=== PATIENT | female | born 1990 | race Caucasian/White ===

== ENCOUNTER 2017-04-27 23:24 | Emergency (ER) | payer BC ==
[2017-04-27] MEDS ORDERED: NORMAL SALINE 1,000 ML IV ONE (23:49)
[2017-04-27] MEDS ORDERED: NALBUPHINE HCL 20 MG/ML AMPUL IV ONE (23:50)
[2017-04-27] MEDS ORDERED: PROMETHAZINE HCL 25 MG in DEXTROSE 5 % IN WATER 50 ML IV ONE ×2 (23:51)
[2017-04-28 00:11] LABS: Hemoglobin 10.9 gm/dL (12.5-16.0); Mean Cell Volume 86.6 fl (78-100); Mean Corpuscular Hemoglobin 28.6 pg (27-31); Neutrophil # 7.8 K/mm3 (1.3-6.0); Neutrophil % 67.9 % (42-75.0); Platelet Count 381 K/mm3 (150-450); Red Blood Count 3.81 M/mm3 (4.2-5.4); Red Cell Distribution Width 11.9 % (11.5-14.0); White Blood Count 11.5 K/mm3 (4.0-10.5)
[2017-04-28] MEDS ORDERED: NALBUPHINE HCL 20 MG/ML AMPUL ONE (00:11)
[2017-04-28 00:22] LABS: Albumin * 2.8 gm/dl (3.4-5.0); BUN/Creatinine Ratio 15.6 (9.0-21.6); Bilirubin, Total 0.2 mg/dL (0.0-1.1); Calcium * 8.4 mg/dL (7.9-10.9); Carbon Dioxide 27.9 mmol/L (24-32.6); Potassium 3.9 mmol/L (3.4-4.6); Total Protein 6.9 gm/dL (6.2-8.2)
[2017-04-28 00:28] LABS: Urine Bilirubin Negative (NEGATIVE); Urine Blood Negative /ul (NEGATIVE); Urine Ketone Negative (NEGATIVE); Urine Nitrite Negative (NEGATIVE); Urine Protein Negative (NEGATIVE); Urine Urobilinogen Normal (NORMAL)
[2017-04-28 00:34] LABS: Urine Appearance Clear; Urine Bacteria TRACE; Urine Color Yellow; Urine RBC None Seen /hpf (0-5); Urine WBC 0-5 /hpf (0-5)
--- NOTE | 2017-04-28 00:56 | ERNOTE ---
Abdominal HPI - Narrative Date of Service: 04/28/17 - General Chief Complaint: Abdominal Pain Time Seen by Provider: 04/27/17 23:40 Source: patient, family Exam Limitations: no limitations - Immun/Allergies/Home Medications Immunizatons: IMMUNIZATION HX Immunizations Up to Date Yes History of Influenza Vaccine No Hx Pneumococcal Vaccination No Allergies/Adverse Reactions: Allergies No Known Allergies Allergy (Unverified 04/27/17 23:28) Home Medications: HOME MEDICATIONS [id number]/Omega3/Dha/Fish Oil [ Gummies] 1 each PO DAILY 04/27/17 [Last Taken Unknown] - History of Present Illness Timing: constant Quality: moderate Activities at Onset: none Modifying Factors - (Improves): Present: vomiting Associated Symptoms: Present: nausea, vomiting, loss of appetite Prior Abdominal Problems: Present: other - currently pregnat with ga of 30 weeks first Review of Systems - Review of Systems Constitutional: Present: See HPI EYE: Present: no symptoms reported ENT: Present: no symptoms reported Respiratory: Present: no symptoms reported Cardiology: Present: no symptoms reported Gastrointestinal/Abdominal: Present: See HPI, nausea, vomiting, other - upper right quadrant pain with readiation to back Genitourinary: Present: See HPI Musculoskeletal: Present: no symptoms reported Skin: Present: no symptoms reported Neurological: Present: no symptoms reported Endocrine: Present: no symptoms reported Hematologic/Lymphatic: Present: no symptoms reported Psych: Present: no symptoms reported All Other Systems: All systems neg except as marked - Patient's Past Medical History Patient History - Medical: Anxiety, Depression Patient History - Cardiac/Respiratory: No pertinent hx Patient History - Cancer: No Hx of Cancer Patient History - Surgical Procedures: No surgical history Patient History - Other: None LMP (females 10-50): - Family History Family History:: no untoward family reactions to anesthesia, no family history of clotting disorders - Social History Living Situations: home Abuse History: No History of abuse Psych History: No pertinent hx Does anyone smoke in the home?: No Smoking Status: Never smoker Have you smoked in the past 12 months: No Do you dip or chew tobacco: No Patient requests Smoking Cessation Consult: No Initiate information on Smoking Cessation: No Alcohol Use: none Drug Use: none - Immunizations Immunizations Up to Date: Yes Hx Pneumococcal Vaccination: No History of Influenza Vaccine: No Physical Exam - Physical Exam General Appearance: Present: moderate distress Head Exam: Present: normal inspection, no evidence of injury Eye Exam: Normal inspection: bilateral, PERRL: bilateral, EOMI: bilateral Ears, Nose, Throat: Present: normal ENT inspection, tonsillar swelling Neck: Present: normal inspection, nontender Respiratory: Present: no respiratory distress, normal breath sounds, no accessory muscle use, chest nontender, lungs clear Cardiovascular/Chest: Present: regular rate, rhythm, no murmur, normal peripheral pulses Peripheral Pulses: N=norm/S=strong/W=weak/B=bound/A=absent: Carotid (R): Normal , Carotid (L): Normal, Radial (R): Normal, Radial (L): Normal, Femoral (R): Normal, Femoral (L): Normal, Dorsalis-pedis (R): Normal, Dorsalis-pedis (L): Normal Gastrointestinal/Abdominal: Present: other - gravid uterus above umbilicus, epigastric and upper right quadrant tenderness with radiation to right scapula Back Exam: Present: normal inspection, normal range of motion, no CVA tenderness , no vertebral tenderness Extremity Exam: Present: normal inspection, non-tender, normal range of motion, no edema Neurological Exam: Present: alert, oriented, normal mood/affect, no motor/ sensory deficits DTR: N=norm/NB=norm/brisk/A=abs/DD=dull/dimin/HC=hyperactive: Bicep (R): Normal , Bicep (L): Normal, Tricep (R): Normal, Tricep (L): Normal, Knee (R): Normal, Knee (L): Normal, Ankle (R): Normal, Ankle (L): Normal Skin Exam: Present: normal color, warm/dry ED Progress - Results and Orders Patient's Lab Results:: I have reviewed the patient's lab results. - Vital Signs Patient's Vital Signs:: I have reviewed the patient's vital signs. Vital Signs: Vital Signs 04/27/17 23:28 Temperature 36.6 C Pulse Rate 76 Respiratory 18 Rate Blood Pressure 117/70 O2 Sat by Pulse 99 Oximetry - Progress/Reassessment Chief Complaint: Abdominal Pain Progress:: Improved - Transfer of Care Expected Disposition: Discharge Plan - Plan Plan: to schedule us of gallbladder in am Departure Clinical Impression: Gallstones - Departure Disposition: Home self-care Condition: Fair Instructions: Cholelithiasis, Cholelithiasis, [id number] Referrals: Bina Almazan DO [Primary Care Provider] -
[2017-04-28 06:08] VITALS: BP 94/51
== END 2017-04-28 01:00 | disposition home or self-care (01) ==
LOC: ER 23:24
DX: K80.80 Other cholelithiasis without obstruction (principal); Z33.1 Pregnant state, incidental

== ENCOUNTER 2017-06-18 | Inpatient (IN) | payer BC ==
[2017-06-18] MEDS ORDERED: LIDOCAINE HCL 50 ML VIAL PERI PRN (00:10)
[2017-06-18] MEDS ORDERED: ONDANSETRON HCL/PF 2 MG/ML VIAL IV PRN ×2 (00:10→18:09)
[2017-06-18] MEDS ORDERED: OXYTOCIN/DEXTROSE 5%-WATER 30 UNITS/500 ML BAG IV ONE (00:10)
[2017-06-18 00:20] LABS: Hemoglobin 9.3 gm/dL (12.5-16.0); Mean Cell Volume 80.9 fl (78-100); Mean Corpuscular Hemoglobin 26.9 pg (27-31); Mean Corpuscular Hgb Conc 33.2 g/dl (32-36); Neutrophil # 7.8 K/mm3 (1.3-6.0); Neutrophil % 70.2 % (42-75.0); Platelet Count 327 K/mm3 (150-450); Red Blood Count 3.46 M/mm3 (4.2-5.4); Red Cell Distribution Width 13.2 % (11.5-14.0); White Blood Count 11.1 K/mm3 (4.0-10.5)
[2017-06-18] MEDS: MISOPROSTOL 100 MCG TABLET VG PRN ×2 (00:27→04:30)
[2017-06-18 00:34] LABS: Albumin * 2.5 gm/dl (3.4-5.0); Anion Gap 14.4 mmol/L (6.8-13.8); BUN/Creatinine Ratio 14.9 (9.0-21.6); Bilirubin, Total 0.2 mg/dL (0.0-1.1); Calcium * 8.1 mg/dL (7.9-10.9); Potassium 3.4 mmol/L (3.4-4.6); Total Protein 6.6 gm/dL (6.2-8.2)
[2017-06-18] MEDS: URSODIOL 300 MG CAPSULE PO SCH ×2 (08:28→14:25)
--- NOTE | 2017-06-18 09:33 | PN ---
Progess Note - Interim Narrative: 06/18/17 09:27 Patient rating contractions as moderate. Complains of right flank pain. Vital signs stable. Status post 2 doses of Cytotec (last dose given at 4:30 this morning) FHT: 140 baseline, reassuring Contractions q 1-2 min Cervix: 3/70/-2 Point tenderness over right rib #10-11 Impression: Intrauterine at 37 weeks. Induction of labor for intrahepatic cholestasis of . Somatic dysfunction of right rib #10/11 - probably aggravated by position and elevated liver enzymes. Plan: Continue present plan. OMT to ribs. Warm compresses and hot shower.
[2017-06-18] MEDS ORDERED: RINGER'S SOLUTION,LACTATED 1,000 ML IV ONE (12:00)
[2017-06-18] MEDS ORDERED: ACETAMINOPHEN 325 MG TABLET PO ONE (14:26)
--- NOTE | 2017-06-18 15:32 | PN ---
Progess Note - Interim Narrative: 06/18/17 15:31 Patient feeling her contractions and low back pain. Pain in right flank resolved. Vital signs stable. FHT: 140 baseline, reassuring Contractions q 1-3 min Cervix: 4/75/-2, AROM-clear Impression: Intrauterine at 37 weeks induction of labor for IHCP. Plan: Continue present plan
[2017-06-18] MEDS ORDERED: NALOXONE HCL 1 MG/1 ML SYRG IV PRN (18:09)
[2017-06-18] MEDS ORDERED: BUPIVACAINE HCL/0.9 % NACL/PF 250 ML EP PRN (18:09)
[2017-06-18] MEDS ORDERED: BUPIVACAINE HCL/PF 30 ML VIAL EP SCH (18:15)
--- NOTE | 2017-06-18 19:06 | OR ---
Anesthesia Procedure Note - Anesthesia Procedure Note Date of Service: 06/18/17 Narrative: Vital Signs - Last Taken Temp 36.5 C 06/18/17 18:44 Pulse 75 06/18/17 18:44 Resp 18 06/18/17 18:44 BP 112/68 06/18/17 18:44 Pulse Ox 98 06/18/17 18:44 06/18/17 19:05 ANESTHESIA PROCEDURE NOTE Date of Procedure: 06/18/2017. Time of procedure: 184. Performed by: Juan Pablo Pittman CRNA Program Lead: None. Preprocedure diagnosis: Active labor. Post procedure diagnosis: Same. Procedure: Insertion of labor epidural. Indications: The patient is a 26 -year-old female in active labor requesting labor epidural for pain management. Findings: See below. Details of the procedure: The patient was placed in a sitting position. DuraPrep as well as Betadine swabs X3 was applied to the patient's back. Patient was then draped in a sterile fashion. Lidocaine 1% was infiltrated to the skin and subcutaneous tissues at the level of the L3-4 interspace. The epidural space was identified using a 18-gauge Tuohy needle with loss-of- resistance technique. Epidural catheter was inserted to a depth of 10 centimeters at skin. Negative test dose was elicited using 3 mL of 1.5% preservative-free lidocaine plus epinephrine 1 200,000. The epidural catheter was then taped and secured in place. A loading dose of 8 mL of 0.25% preservative-free bupivacaine was administered to the epidural catheter after negative aspiration for blood and CSF. EBL: Minimal. Fluids: N/A. Specimen: N/A. Post procedure condition: The patient tolerated the procedure well. No complications were noted. Thank you for this consultation. Juan Pablo Pittman CRNA
[2017-06-18] MEDS: DEXTROSE 5%-LACTATED RINGERS 1,000 ML IV PRN ×2 (19:17→23:21)
[2017-06-19] MEDS: DEXTROSE 5%-LACTATED RINGERS 1,000 ML IV PRN (03:24)
[2017-06-19] MEDS ORDERED: LIDOCAINE HCL 50 ML VIAL ONE (05:10)
--- NOTE | 2017-06-19 05:51 | OR ---
Operative Report - Dictated Report Narrative: Indication: Maternal exhaustion Pre Procedure Patient was counseled to the risk, benefits, and alternatives to operative vaginal delivery. All questions were answered. Patient consented to proceed with operative vaginal delivery. heart rate interpretation: 180 bpm, good xzzt-[id number] variability with minor variable decelerations, accelerations reassuring, EFW 3200 g, station less 3, Position of head YOHAN, Anesthesia: epidural Cervix was completely dilated and effaced, maternal- size appropriate for application, bladder was emptied, flexion point identified, cup choice appropriate for application site, maternal tissue excluded from vacuum cup Procedure Total application time of the Kiwi Pro with Palm Pump was less than 1 minute, maximum vacuum achieved was 500 mm Hg, number of pulls 1, number of involuntary releases 0, vacuum reduced between contractions, advancement in station with each pull, degree of rotation 0-45 Post Procedure Viable male board at 0520 at 06/19/2017 with Apgars 8 and 9, weighing 3045 g in YOHAN position. Cord gases not collected, Placenta spontaneously delivered, EBL 100 mL, loop of cord compressed against the chest, caput, mild shoulder dystocia resolved with Job and suprapubic pressure. Right shoulder anterior. Fetus moving all extremities without difficulty. Mother informed of mild shoulder dystocia and recommended not delivering a baby over 7 pounds.
[2017-06-19] MEDS ORDERED: BISACODYL 10 MG SUPP.RECT RC PRN (05:52)
[2017-06-19] MEDS ORDERED: HYDROCORTISONE 30 APPL TUBE TP PRN (05:52)
[2017-06-19] MEDS ORDERED: SENNOSIDES 8.6 MG TABLET PO PRN (05:52)
[2017-06-19] MEDS ORDERED: oxyCODONE HCL/ACETAMINOPHEN 1 TAB TABLET PO PRN ×2 (05:52)
[2017-06-19] MEDS ORDERED: BENZOCAINE/MENTHOL 81 SPRAY CAN TP PRN (05:52)
[2017-06-19] MEDS ORDERED: OXYTOCIN/DEXTROSE 5%-WATER 30 UNITS/500 ML BAG IV ONE (05:52)
[2017-06-19] MEDS ORDERED: GLYCERIN/WITCH HAZEL LEAF 40 APPL BOX TP PRN (05:52)
[2017-06-19] MEDS ORDERED: FLU VACC QS2017-18(6MOS UP)/PF 60 MCG/0.5 ML SYRINGE IM ONE (07:02)
[2017-06-19] MEDS: IBUPROFEN 800 MG TABLET PO PRN ×2 (08:57→17:27)
[2017-06-19] MEDS: FERROUS SULFATE 325 MG TABLET PO SCH (10:24)
[2017-06-19] MEDS: DOCUSATE SODIUM 100 MG CAPSULE PO SCH ×2 (10:24→21:25)
[2017-06-19] MEDS: PRENATAL VITS96/IRON FUM/FOLIC 1 TAB TABLET PO SCH (10:24)
[2017-06-20] MEDS: IBUPROFEN 800 MG TABLET PO PRN ×2 (02:45→18:49)
[2017-06-20] MEDS ORDERED: FLU VACC QS2017-18(6MOS UP)/PF 60 MCG/0.5 ML SYRINGE IM ONE (09:00)
--- NOTE | 2017-06-20 09:05 | PN ---
Subjective - Date and Time Seen Date: 06/20/17 Time: 09:03 Objective - Vitals Vitals: Last Vital Signs Temp 36.6 C 06/20/17 07:30 Pulse 55 L 06/20/17 07:30 Resp 18 06/20/17 07:30 BP 132/69 06/20/17 07:30 Pulse Ox 98 06/20/17 07:30 Patient still complaining of pruritus. As pain under good control Lochia wnl Abdomen - soft, nontender Uterus - firm, at umbilicus - 1 No calf tenderness Impression: day #1 - s/p spontaneous vaginal delivery. Intrahepatic cholestasis of with elevated liver enzymes Plan: Continue routine care. Restart ursodiol and recheck liver function Cauti Physician Documentation - Urinary Catheter Management Urethral (Pierce) Date of Insertion: 06/18/17 Time of Insertion: 19:45
[2017-06-20] MEDS: PRENATAL VITS96/IRON FUM/FOLIC 1 TAB TABLET PO SCH (09:36)
[2017-06-20] MEDS: FERROUS SULFATE 325 MG TABLET PO SCH (09:36)
[2017-06-20] MEDS: DOCUSATE SODIUM 100 MG CAPSULE PO SCH ×2 (09:36→20:51)
[2017-06-20 11:16] LABS: Albumin * 2.1 gm/dl (3.4-5.0); Anion Gap 11.3 mmol/L (6.8-13.8); BUN/Creatinine Ratio 17.6 (9.0-21.6); Bilirubin, Total 0.2 mg/dL (0.0-1.1); Ca. Corrected For Albumin 10.3 mg/dL (8.4-10.2); Calcium * 9.1 mg/dL (7.9-10.9); Carbon Dioxide 28.2 mmol/L (24-32.6); Potassium 3.5 mmol/L (3.4-4.6); Total Protein 6.2 gm/dL (6.2-8.2)
[2017-06-20] MEDS: URSODIOL 300 MG PO SCH ×2 (14:11→17:24)
[2017-06-21] MEDS: IBUPROFEN 800 MG TABLET PO PRN (04:45)
[2017-06-21 08:21] VITALS: BP 125/60
--- NOTE | 2017-06-21 09:48 | PN ---
Progess Note - Interim Narrative: 06/21/17 09:46 progress note Subjective: The patient is doing well. She is ambulating, voiding, tolerating by mouth. She has minimal pain and moderate lochia. Pruritus has improved Objective: General: No acute distress Abdomen: Soft, nontender, fundus is firm just below the umbilicus Extremities: minimal edema, nontender to palpation Assessment and plan: day 2 Feeding: Breast Pain: Controlled with by mouth medication Cholestasis of : Improving Routine care.
[2017-06-21] MEDS: PRENATAL VITS96/IRON FUM/FOLIC 1 TAB TABLET PO SCH (09:53)
[2017-06-21] MEDS: DOCUSATE SODIUM 100 MG CAPSULE PO SCH (09:53)
[2017-06-21] MEDS: FERROUS SULFATE 325 MG TABLET PO SCH (09:53)
== END 2017-06-21 13:00 | disposition home or self-care (01) | DRG 774 ==
LOC: OB
PROVIDERS: ADMIT Obstetrics & Gynecology; ATTEND Obstetrics & Gynecology
PROC: 10D07Z6 Extraction of Products of Conception, Vacuum, Via Natural or Artificial Opening (ICD-10-PCS; principal; 2017-06-19)
PROC: 10907ZC Drainage of Amniotic Fluid, Therapeutic from Products of Conception, Via Natural or Artificial Opening (ICD-10-PCS; 2017-06-19)
PROC: 4A1HXCZ Monitoring of Products of Conception, Cardiac Rate, External Approach (ICD-10-PCS; 2017-06-19)
PROC: 0HQ9XZZ Repair Perineum Skin, External Approach (ICD-10-PCS; 2017-06-19)
PROC: 00HU33Z Insertion of Infusion Device into Spinal Canal, Percutaneous Approach (ICD-10-PCS; 2017-06-19)
DX: O75.81 Maternal exhaustion complicating labor and delivery (principal); O98.52 Other viral diseases complicating childbirth; K83.1 Obstruction of bile duct; O26.62 Liver and biliary tract disorders in childbirth; O66.0 Obstructed labor due to shoulder dystocia; O69.1XX0 Labor and delivery complicated by cord around neck, with compression, not applicable or unspecified; B00.1 Herpesviral vesicular dermatitis; J45.20 Mild intermittent asthma, uncomplicated; F41.9 Anxiety disorder, unspecified; Z3A.37 37 weeks gestation of pregnancy; Z37.0 Single live birth
CPT/HCPCS: 36415; 59025; 80053; 85025; 90686; G0008

== ENCOUNTER 2020-04-11 00:09 | Inpatient (IN) ==
[2020-04-11] MEDS ORDERED: RINGER'S SOLUTION,LACTATED 1,000 ML IV ONE (00:10)
[2020-04-11] MEDS ORDERED: OXYTOCIN/0.9 % SODIUM CHLORIDE 30 UNITS/500 ML BAG IV ONE (00:10)
[2020-04-11] MEDS ORDERED: ONDANSETRON 4 MG TAB.RAPDIS PO PRN (00:10)
[2020-04-11 00:28] LABS: Hematocrit 30.6 % (37.0-47.0); Hemoglobin 9.2 gm/dL (12.5-16.0); Mean Cell Volume 77.1 fl (78-100); Mean Corpuscular Hemoglobin 23.2 pg (27-31); Mean Corpuscular Hgb Conc 30.1 g/dl (32-36); Mean Platelet Volume 9.1 fl (8-12.5); Neutrophil # 6.5 K/mm3 (1.3-6.0); Neutrophil % 60.8 % (42-75.0); Platelet Count 330 K/mm3 (150-450); Red Blood Count 3.97 M/mm3 (4.2-5.4); Red Cell Distribution Width 15.6 % (11.5-14.0); White Blood Count 10.7 K/mm3 (4.0-10.5)
[2020-04-11 00:44] LABS: Albumin * 2.3 gm/dl (3.4-5.0); Anion Gap 14.6 mmol/L (6.8-13.8); BUN/Creatinine Ratio 7.9 (9.0-21.6); Bilirubin, Total 0.2 mg/dL (0.0-1.1); Ca. Corrected For Albumin 9.9 mg/dL (8.4-10.2); Calcium * 8.9 mg/dL (7.9-10.9); Carbon Dioxide 23.1 mmol/L (24-32.6); Potassium 3.7 mmol/L (3.4-4.6); Total Protein 6.8 gm/dL (6.2-8.2)
[2020-04-11] MEDS: MISOPROSTOL 100 MCG TABLET VG PRN ×2 (00:47→04:48)
--- NOTE | 2020-04-11 14:49 | HP ---
Chief Complaint - Chief Complaint Date of Service: 04/11/20 Time of Service: 14:00 Chief Complaint: medical induction of labor History of Present Illness: 29 yo at 36 weeks admitted for induction of labor due to IHCP. Patient began having s/s of IHCP start around 33 weeks with this . Symptoms have progressively worsened despite taking ursodiol 300mg TID and hydroxyzine. Risks, benefits, and alternatives were thoroughly discussed with patient and spouse regarding timing of delivery by myself as well as our pediatricians, Dr. Layton and Dr. Lance. All questions were answered and the decision to induce at 36 weeks was made due to worsening and uncontrollable pruritis and inability to obtain timely bile acid salt level (which would also be inaccurate due to use of ursodiol). This complicated by anemia, anxiety, asthma, IHCP, h/o IHCP in prior and mild shoulder dystocia with last (6#10oz). Rh positive Rubella immune GBS negative Medical History (Last Reviewed 04/11/20 @ 15:01 by Srinivas Jimenes DO) Intrahepatic cholestasis of (Resolved) Onset Date: 2016 Anemia (Acute) Onset Date: 12/19/19 w/ Intrahepatic cholestasis of (Resolved) History of shoulder dystocia in prior (Chronic) At risk for ineffective (Inactive) Vaginal delivery (Resolved) Gallstones (Inactive) Anxiety Cold sore Asthma Shoulder dystocia, delivered Onset Date: 2016 mild Surgical History: Surgical History (Last Reviewed 04/11/20 @ 15:01 by Srinivas Jimenes DO) No significant past surgical history (Acute) Family History: Family History (Last Reviewed 04/11/20 @ 15:01 by Srinivas Jimenes DO) Father Diabetes Mother Alive and well Social History: (Last Reviewed 04/11/20 @ 15:01 by Srinivas Jimenes DO) Social History: retirement: No Marital status: household members: spouse, children number of children: 2 current occupational status: unemployed Highest education level completed: Bachelor's degree Service: No Tobacco: Smoking Status: Never smoker second hand exposure: No Alcohol: alcohol intake: never Substance Use: substance use type: does not use Dietary Habits: caffeine: No Exercise: Physical activity functional status: normal ROM and activity Review Of Systems (GEN) - Review of Systems Generalized/Overall Review: Present: Fatigue - due to inability to sleep and constant pruritis EENTM: Present: No Symptoms Reported Respiratory: Present: No Symptoms Reported Cardiac: Present: No Symptoms Reported Abdominal: Present: No Symptoms Reported Genitourinary: Present: No Symptoms Reported Musculoskeletal: Present: No Symptoms Reported Neurological: Present: Anxiety - controlled/stable Skin: Present: Other - pruritis of entire body, worse on palms of hands and soles of feet, especially at night. Endocrine: Present: No Symptoms Reported Immunizations: IMMUNIZATION HX Immunizations Up to Date Yes History of Influenza Vaccine No Hx Pneumococcal Vaccination No Allergies/Adverse Reactions: Allergies Allergy/AdvReac Type Severity Reaction Status Date / Time No Known Allergies Allergy Verified 04/11/20 00:19 Home Medications: HOME MEDICATIONS prenat.vits,kelly,[id number] 1 tab PO DAILY 10/15/19 [Last Taken 04/10/20] hydroxyzine HCl 25 mg tablet 25 mg PO Q4H PRN #30 tab 12/18/19 [Last Taken 04/09/20] ascorbic acid (vitamin C) 500 mg tablet 500 mg PO BID 02/13/20 [Last Taken 04/10/20] ferrous sulfate 325 mg (65 mg iron) tablet 325 mg PO BID 02/13/20 [Last Taken 04/10/20] breast pump See Rx Instructions .ROUTE .MEDSUPPLY #1 ea 03/10/20 [Last Taken Unknown] hydroxyzine HCl 25 mg tablet 25 mg PO Q4H PRN #30 tab 04/01/20 [Last Taken Unknown] ursodiol 300 mg capsule 300 mg PO TID #60 cap 04/01/20 [Last Taken 04/10/20 09:00] Exam - Exam Vital Signs: Vital Signs - Last Taken Temp 36.1 C 04/11/20 00:27 Pulse 101 H 04/11/20 00:27 Resp 18 04/11/20 00:27 BP 126/74 04/11/20 00:27 Pulse Ox 98 04/11/20 00:27 Constitutional: Present: Alert, Oriented x3, Mild distress - due to pruritis ENT Exam: Present: hearing grossly normal Neck: Present: trachea midline. Absent: thyromegaly Breasts: Present: Exam deferred Respiratory: Present: lungs clear, no respiratory distress Cardiovascular/Chest: Present: normal peripheral pulses, regular rate, rhythm, no edema Abdomen: Present: soft, nontender, no rebound tenderness, other - gravid. Absent: tender /Rectal: Present: Other - Cervix - /ballotable Extremity: Present: no calf tenderness, lower extremity edema - 08/03 Skin Exam: Present: normal color, warm/dry, no cyanosis. Absent: skin rash Lymphatic: Present: no adenopathy Neurologic: Present: alert, normal mood/affect, oriented x 3 Appearance: Present: appropriate appearance, appropriate insight Eye contact: Present: cooperative, good eye contact Thoughts: Present: normal thought pattern, normal mood /affect Diagnostic Studies: Abnormal Lab Results 04/11/20 04/11/20 Range/Units 00: 00:18 WBC 10.7 H (4.0-10.5) K/mm3 RBC 3.97 L (4.2-5.4) M/mm3 Hgb 9.2 L (12.5-16.0) gm/dL Hct 30.6 L (37.0-47.0) % MCV 77.1 L (78-100) fl MCH 23.2 L (27-31) pg MCHC 30.1 L (32-36) g/dl RDW 15.6 H (11.5-14.0) % Immature Gran % (Auto) 0.70 H (0.001-0.429) % Immature Gran # (Auto) 0.07 H (0.000-0.0310) K/mm3 Neutrophils # 6.5 H (1.3-6.0) K/mm3 Carbon Dioxide 23.1 L (24-32.6) mmol/L Anion Gap 14.6 H (6.8-13.8) mmol/L BUN/Creatinine Ratio 7.9 L (9.0-21.6) Random Glucose 148 H (70-110) mg/dL Albumin 2.3 L (3.4-5.0) gm/dl Laboratory Results WBC 10.7 K/mm3 (4.0-10.5) H 04/11/20 00:18 RBC 3.97 M/mm3 (4.2-5.4) L 04/11/20 00:18 Hgb 9.2 gm/dL (12.5-16.0) L 04/11/20 00:18 Hct 30.6 % (37.0-47.0) L 04/11/20 00:18 MCV 77.1 fl (78-100) L 04/11/20 00:18 MCH 23.2 pg (27-31) L 04/11/20 00:18 MCHC 30.1 g/dl (32-36) L 04/11/20 00:18 RDW 15.6 % (11.5-14.0) H 04/11/20 00:18 Plt Count 330 K/mm3 (150-450) 04/11/20 00:18 MPV 9.1 fl (8-12.5) 04/11/20 00:18 Immature Gran % (Auto) 0.70 % (0.001-0.429) H 04/11/20 00:18 Immature Gran # (Auto) 0.07 K/mm3 (0.000-0.0310) H 04/11/20 00:18 Neutrophils % 60.8 % (42-75.0) 04/11/20 00:18 Lymphocytes % 28.2 % (20-51) 04/11/20 00:18 Monocytes % 8.4 % (0.0-9) 04/11/20 00:18 Eosinophils % 1.6 % (0.0-3.0) 04/11/20 00:18 Basophils % 0.3 % (0.0-1.0) 04/11/20 00:18 Nucleated RBC % 0.0 k/mm3 (0-1) 04/11/20 00:18 Neutrophils # 6.5 K/mm3 (1.3-6.0) H 04/11/20 00:18 Lymphocytes # 3.01 k/mm3 (1.5-3.5) 04/11/20 00:18 Monocytes # 0.9 k/mm3 (0.0-1.0) 04/11/20 00:18 Eosinophils # 0.2 k/mm3 (0.0-0.7) 04/11/20 00:18 Absolute Basophils 0.0 k/mm3 (0.0-0.1) 04/11/20 00:18 Sodium 138 mmol/L (132-142) 04/11/20 00:10 Plasma Sodium 139 mmol/L (130-142) 04/11/20 00:10 Potassium 3.7 mmol/L (3.4-4.6) 04/11/20 00:10 Chloride 104 mmol/L (97-106) 04/11/20 00:10 Carbon Dioxide 23.1 mmol/L (24-32.6) L 04/11/20 00:10 Anion Gap 14.6 mmol/L (6.8-13.8) H 04/11/20 00:10 BUN 5 mg/dL (3-23) 04/11/20 00:10 Creatinine 0.63 mg/dL (0.4-1.4) 04/11/20 00:10 Est GFR (Non-Af Amer) 119 mL/min (60-130) 04/11/20 00:10 BUN/Creatinine Ratio 7.9 (9.0-21.6) L 04/11/20 00:10 Random Glucose 148 mg/dL (70-110) H 04/11/20 00:10 Calcium 8.9 mg/dL (7.9-10.9) 04/11/20 00:10 Calcium Adj for Albumin 9.9 mg/dL (8.4-10.2) 04/11/20 00:10 Total Bilirubin 0.2 mg/dL (0.0-1.1) 04/11/20 00:10 AST 19 U/L (0-48) 04/11/20 00:10 ALT 27 U/L (19-67) 04/11/20 00:10 Alkaline Phosphatase 126 U/L (50-170) 04/11/20 00:10 Total Protein 6.8 gm/dL (6.2-8.2) 04/11/20 00:10 Albumin 2.3 gm/dl (3.4-5.0) L 04/11/20 00:10 Assessment/Plan - Assessment/Plan (1) Intrahepatic cholestasis of Assessment: Admit for Cytotec induction of labor. Possible cervical Pierce bulb, pitocin, and/or Epidural PRN. Problem: Acute (2) Asthma Problem: Inactive Qualifiers: Asthma severity: mild Asthma persistence: intermittent Asthma complication type: uncomplicated Qualified Code(s): J45.20 - Mild intermittent asthma, uncomplicated (3) Anxiety Problem: Chronic (4) Anemia Problem: Chronic Qualifiers: Anemia type: iron deficiency Iron deficiency anemia type: inadequate dietary iron intake Qualified Code(s): D50.8 - Other iron deficiency anemias (5) History of shoulder dystocia in prior Problem: Chronic
--- NOTE | 2020-04-11 15:12 | PN ---
Progess Note - Interim Date: 04/11/20 Time: 15:09 Narrative: 04/11/20 15:10 Patient becoming more uncomfortable with contractions Vital signs stable. Status post Cytotec x2 doses (last dose around 5 AM). FHT: 130 baseline, reassuring contractions q 1-3 min Cervix: 2/60/-3, Pierce bulb inserted cervical canal and inflated with 75 mL of sterile saline at 1420. Impression: Intrauterine at 36 weeks induction of labor for intrahepatic cholestasis of Plan: Epidural PRN. Continue present plan.
[2020-04-11] MEDS ORDERED: ONDANSETRON HCL/PF 2 MG/ML VIAL IV PRN (15:27)
[2020-04-11] MEDS ORDERED: NALOXONE HCL 1 MG/1 ML SYRG IV PRN (15:27)
[2020-04-11] MEDS ORDERED: BUPIVACAINE HCL/0.9 % NACL/PF 250 ML EP PRN (15:27)
[2020-04-11] MEDS ORDERED: BUPIVACAINE HCL/PF 30 ML VIAL EP SCH (15:30)
[2020-04-11] MEDS: DEXTROSE 5%-LACTATED RINGERS 1,000 ML IV PRN (16:00)
--- NOTE | 2020-04-11 16:39 | ANES ---
Anesthesia Pre Procedure Eval Vitals/Labs: Last Vital Signs Temp 36.1 C 04/11/20 00:27 Pulse 101 H 04/11/20 00:27 Resp 18 04/11/20 00:27 BP 126/74 04/11/20 00:27 Pulse Ox 98 04/11/20 00:27 HOME MEDICATIONS prenat.vits,kelly,tdx-gvkr-hsixb 1 tab PO DAILY 10/15/19 [Last Taken 04/10/20] hydroxyzine HCl 25 mg tablet 25 mg PO Q4H PRN #30 tab 12/18/19 [Last Taken 04/09/20] ascorbic acid (vitamin C) 500 mg tablet 500 mg PO BID 02/13/20 [Last Taken 04/10/20] ferrous sulfate 325 mg (65 mg iron) tablet 325 mg PO BID 02/13/20 [Last Taken 04/10/20] breast pump See Rx Instructions .ROUTE .MEDSUPPLY #1 ea 03/10/20 [Last Taken Unknown] hydroxyzine HCl 25 mg tablet 25 mg PO Q4H PRN #30 tab 04/01/20 [Last Taken Unknown] ursodiol 300 mg capsule 300 mg PO TID #60 cap 04/01/20 [Last Taken 04/10/20 09:00] Allergies/Adverse Reactions: Allergies Allergy/AdvReac Type Severity Reaction Status Date / Time No Known Allergies Allergy Verified 04/11/20 00:19 - Planned Procedure Planned Procedure: Labor Epidural Medication List Reviewed:: Yes Allergies Verified: Yes Medical History (Last Reviewed 04/11/20 @ 15:01 by Srinivas Jimenes DO) Intrahepatic cholestasis of (Acute) Onset Date: 2016 Anemia (Chronic) Onset Date: 12/19/19 w/ Intrahepatic cholestasis of (Resolved) History of shoulder dystocia in prior (Chronic) At risk for ineffective (Inactive) Vaginal delivery (Resolved) Gallstones (Inactive) Anxiety Cold sore Asthma Shoulder dystocia, delivered Onset Date: 2016 mild Surgical History (Last Reviewed 04/11/20 @ 15:01 by Srinivas Jimenes DO) No significant past surgical history (Acute) Family History (Last Reviewed 04/11/20 @ 15:01 by Srinivas Jimenes DO) Father Diabetes Mother Alive and well - Anesthesia Assessment and Plan ASA Class: PS, II Anesthesia Type Plan: Epidural
--- NOTE | 2020-04-11 16:55 | ANES ---
Anesthesia Procedure Note Procedure Note: ANESTHESIA PROCEDURE NOTE Date of Procedure: 04/11/2020. Time of procedure: 1640. Performed by: Juan Pablo Pittman CRNA [employer] Guides: None. Preprocedure diagnosis: Active labor. Post procedure diagnosis: Same. Procedure: Insertion of labor epidural. Indications: The patient is a 29-year-old female in active labor requesting labor epidural for pain management. Findings: See below. Details of the procedure: The patient was placed in a sitting position. DuraPrep as well as Betadine swabs X3 was applied to the patient's back. Patient was then draped in a sterile fashion. Lidocaine 1% was infiltrated to the skin and subcutaneous tissues at the level of the L3-4 interspace. The epidural space was identified using a 18-gauge Tuohy needle with [id number] technique. Epidural catheter was inserted to a depth of 11 centimeters at skin. Negative test dose was elicited using 3 mL of 1.5% preservative-free lidocaine plus epinephrine 1 200,000. The epidural catheter was then taped and secured in place. A loading dose of 8 mL of 0.25% preservative-free bupivacaine was administered to the epidural catheter after negative aspiration for blood and CSF. EBL: Minimal. Fluids: N/A. Specimen: N/A. Post procedure condition: The patient tolerated the procedure well. No complications were noted. Thank you for this consultation. Juan Pablo Pittman CRNA
--- NOTE | 2020-04-11 16:55 | ANES ---
Post Anesthesia Assessment - Vital Signs Vitals: Last Vital Signs Temp 36.1 C 04/11/20 00:27 Pulse 101 H 04/11/20 00:27 Resp 18 04/11/20 00:27 BP 126/74 04/11/20 00:27 Pulse Ox 98 04/11/20 00:27 Airway Patency: Normal - Mental Status Level Of Consciousness: Awake - N/V Assessment Nausea/Vomiting Presence: None Dehydration:: No
--- NOTE | 2020-04-11 20:27 | PN ---
Progess Note - Interim Date: 04/11/20 Time: 20:23 Narrative: 04/11/20 20:24 Patient comfortable with epidural Vital signs stable. FHT: 160 baseline, reassuring contractions q 2-3 min Cervix: 6-7/70 5/-3, AROM-clear Impression: Intrauterine at 36 weeks induction of labor for HCP, pro gressing well Plan: Anticipate normal spontaneous vaginal delivery within the next 2 to 3 hours.
--- NOTE | 2020-04-11 21:22 | PN ---
Progess Note - Interim Date: 04/11/20 Time: 21:20 Narrative: 04/11/20 21:20 Patient comfortable with epidural Vital signs stable. FHT: 155 baseline, reassuring contractions q 2-3 min but do not do appear very strong on external monitor Cervix: 6-7/70 5/-3, no change Impression: Intrauterine at 36 weeks induction of labor for IHCP Plan: IUPC placed to better assess contractions. Pitocin if needed.
[2020-04-12] MEDS: DEXTROSE 5%-LACTATED RINGERS 1,000 ML IV PRN (00:16)
[2020-04-12] MEDS ORDERED: GLYCERIN/WITCH HAZEL LEAF 40 APPL BOX TP PRN (06:24)
[2020-04-12] MEDS ORDERED: HYDROCORTISONE 30 APPL TUBE TP PRN (06:24)
[2020-04-12] MEDS ORDERED: BENZOCAINE/MENTHOL 81 SPRAY CAN TP PRN (06:24)
[2020-04-12] MEDS ORDERED: OXYTOCIN/0.9 % SODIUM CHLORIDE 30 UNITS/500 ML BAG IV ONE (06:24)
[2020-04-12] MEDS ORDERED: SENNOSIDES 8.6 MG TABLET PO PRN (06:24)
[2020-04-12] MEDS ORDERED: BISACODYL 10 MG SUPP.RECT RC PRN (06:24)
--- NOTE | 2020-04-12 06:27 | OR ---
Operative Report - Dictated Report Narrative: Spontaneous vaginal delivery of viable male at 0559 on 04/12/2020 with Apgars 7 and 8, weighing 3448 g in KUN position with left hand at face. Cord clamping delayed approximately 1 minute Placenta delivered complete, intact, with three vessel cord Estimated blood loss: Less than 50 ml Anesthesia: Epidural Lacerations: None History for MU History for Definition: * The number of deliveries resulting in a live the patient experienced prior to current hospitalization * The previous delivery of live twins or any live multiple gestation is considered one live event. *If primagravida or nulliparous is documented select zero for the number of previous live births. Live Events: Live Events: 1
[2020-04-12] MEDS: ASCORBIC ACID 500 MG TABLET PO SCH ×2 (08:21→21:23)
[2020-04-12] MEDS: FERROUS SULFATE 325 MG TABLET PO SCH ×2 (08:21→21:23)
[2020-04-12] MEDS: PRENATAL VITS96/IRON FUM/FOLIC 1 TAB TABLET PO SCH (08:21)
[2020-04-12] MEDS: DOCUSATE SODIUM 100 MG CAPSULE PO SCH ×2 (08:21→21:21)
[2020-04-12] MEDS: IBUPROFEN 800 MG TABLET PO PRN (21:21)
[2020-04-12] MEDS ORDERED: hydrOXYzine HCL 25 MG TABLET PO PRN (22:07)
[2020-04-13] MEDS: IBUPROFEN 800 MG TABLET PO PRN ×4 (03:37→23:10)
[2020-04-13] MEDS: DOCUSATE SODIUM 100 MG CAPSULE PO SCH ×2 (09:22→20:18)
[2020-04-13] MEDS: FERROUS SULFATE 325 MG TABLET PO SCH ×2 (09:22→20:18)
[2020-04-13] MEDS: PRENATAL VITS96/IRON FUM/FOLIC 1 TAB TABLET PO SCH (09:22)
[2020-04-13] MEDS: ASCORBIC ACID 500 MG TABLET PO SCH ×2 (09:24→20:25)
[2020-04-13] MEDS: URSODIOL 300 MG CAPSULE PO SCH ×4 (09:25→20:14)
[2020-04-13] MEDS: oxyCODONE HCL/ACETAMINOPHEN 1 TAB TABLET PO PRN ×2 (16:01→23:10)
--- NOTE | 2020-04-13 18:06 | PN ---
Subjective - Date and Time Seen Date: 04/13/20 Time: 18:05 Objective - Vitals Vitals: Last Vital Signs Temp 36.5 C 04/13/20 13:18 Pulse 85 04/13/20 13:18 Resp 18 04/13/20 13:18 BP 128/87 04/13/20 13:18 Pulse Ox 98 04/13/20 13:18 Patient denies complaints. Lochia wnl abdomen - soft, nontender Uterus -firm, at umbilicus - 1 No calf tenderness Impression: day #1 - s/p spontaneous vaginal delivery. IHCP- improving. Plan: Continue routine care [facility]i Physician Documentation - Urinary Catheter Management Urethral ([facility]) Date of Insertion: 04/11/20 Time of Insertion: 17:15 Date of Removal: 04/12/20 Time of Removal: 05:25 Assessment/Plan - Problems/Diagnosis (1) Intrahepatic cholestasis of Problem: Acute (2) Asthma Problem: Inactive Qualifiers: Asthma severity: mild Asthma persistence: intermittent Asthma complication type: uncomplicated Qualified Code(s): J45.20 - Mild intermittent asthma, uncomplicated (3) Anxiety Problem: Chronic (4) Anemia Problem: Chronic Qualifiers: Anemia type: iron deficiency Iron deficiency anemia type: inadequate dietary iron intake Qualified Code(s): D50.8 - Other iron deficiency anemias (5) History of shoulder dystocia in prior Problem: Chronic
--- NOTE | 2020-04-14 00:43 | PN ---
Subjective - Date and Time Seen Date: 04/14/20 Time: 00:42 Objective - Vitals Vitals: Last Vital Signs Temp 36.5 C 04/13/20 19:02 Pulse 78 04/13/20 19:02 Resp 16 04/13/20 19:02 BP 133/80 04/13/20 19:02 Pulse Ox 98 04/13/20 19:02 Patient still with pruritus but improving. Unable to sleep since baby is under bilirubin lights. Breast feeding with supplementation. Lochia wnl abdomen - soft, nontender Uterus -firm, at umbilicus - 2 No calf tenderness Impression: day #2 - s/p spontaneous vaginal delivery. Baby may need to stay an extra day or 2 due to elevated bilirubin levels. Plan: Routine discharge instructions. Board for baby. Cauti Physician Documentation - Urinary Catheter Management Urethral ([facility]) Date of Insertion: 04/11/20 Time of Insertion: 17:15 Date of Removal: 04/12/20 Time of Removal: 05:25 Assessment/Plan - Problems/Diagnosis (1) Intrahepatic cholestasis of Problem: Acute (2) Asthma Problem: Inactive Qualifiers: Asthma severity: mild Asthma persistence: intermittent Asthma complication type: uncomplicated Qualified Code(s): J45.20 - Mild intermittent asthma, uncomplicated (3) Anxiety Problem: Chronic (4) Anemia Problem: Chronic Qualifiers: Anemia type: iron deficiency Iron deficiency anemia type: inadequate dietary iron intake Qualified Code(s): D50.8 - Other iron deficiency anemias (5) History of shoulder dystocia in prior Problem: Chronic
[2020-04-14] MEDS: oxyCODONE HCL/ACETAMINOPHEN 1 TAB TABLET PO PRN ×3 (02:21→23:26)
[2020-04-14] MEDS: ASCORBIC ACID 500 MG TABLET PO SCH ×2 (10:54→21:15)
[2020-04-14] MEDS: DOCUSATE SODIUM 100 MG CAPSULE PO SCH ×2 (10:54→20:19)
[2020-04-14] MEDS: PRENATAL VITS96/IRON FUM/FOLIC 1 TAB TABLET PO SCH (10:54)
[2020-04-14] MEDS: IBUPROFEN 800 MG TABLET PO PRN ×2 (10:55→20:19)
[2020-04-14] MEDS: FERROUS SULFATE 325 MG TABLET PO SCH ×2 (10:55→20:18)
[2020-04-14] MEDS: URSODIOL 300 MG CAPSULE PO SCH ×3 (10:58→18:14)
[2020-04-14 20:11] VITALS: BP 130/80
== END 2020-04-14 23:55 | disposition home or self-care (01) | DRG 805 ==
LOC: OB 00:09
PROVIDERS: ADMIT Obstetrics & Gynecology; ATTEND Obstetrics & Gynecology